=== PATIENT | female | born 1960 | race Caucasian/White ===

== ENCOUNTER → 2019-02-09 07:43 | Outpatient (CLI) | payer BC, SELFPAY ==
--- NOTE | 2019-02-09 08:47 | PM.TREADMILL ---
Cardiac Stress Test Report Referral & Results Date Patient Seen: 02/09/19 Time Patient Seen: 08:30 Requesting provider: Janna Patton Indication: Family H/o CAD Rest ECG: NSR Procedure Note: Today following both written and verbal informed consent, the patient was exercised according to a standard Malik protocol. The patient exercised for a total of 8 minutes 59 seconds achieving a maximum heart rate of 180. Patient's maximum systolic blood pressure was 190. This was an estimated 10.1 METs. Normal sinus rhythm throughout. No signs or symptoms of angina. Diffuse [address] deviations the resolved rapidly with rest.-10% JOSHUA on the active scale. Impression: Low probability for ischemia. Please note: Actual ECG tracings can be found in the PACS system.
== END ==
PROVIDERS: Visit Provider Student in an Organized Health Care Education/Training Program
DX: Z82.49 Family history of ischemic heart disease and other diseases of the circulatory system (principal); E78.5 Hyperlipidemia, unspecified; E03.9 Hypothyroidism, unspecified
CPT/HCPCS: 93016; 93017; 93018

== ENCOUNTER → 2025-01-10 11:50 | Outpatient (CLI) | payer MEDICARE, OTHER, SELFPAY ==
--- NOTE | 2025-01-10 11:55 | DI.RAD.S_ITS ---
PROCEDURE: XR DEXA AXIAL SKELETON INDICATIONS: OSTEOPOROSIS SCREENING COMPARISON: None. FINDINGS: Lumbar Spine: Bone mineral density 1.028 g/cm2, T score -0.2. Left Femoral Neck: Bone mineral density 0.751 g/cm2, T score -0.9. Left Hip: Bone mineral density 0.885 g/cm2, T score -0.5. Fracture Risk Calculation (when applicable): 10-year fracture risk of a major osteoporotic fracture 7.9 percent and of a hip fracture 0.5 percent. (T score greater or equal to -1.0 to: NORMAL) (T score from -1.1 to -2.4: OSTEOPENIA) (T score less than or equal to -2.5: OSTEOPOROSIS) IMPRESSION: Normal--- recommend repeat DEXA as clinically indicated. Follow-up guidelines as follows: Osteoporosis: Consider a repeat DEXA and Vertebral Fracture Assessment (VFA) exam in 2 years or sooner if medically necessary, to reassess this patient's status. Osteopenia: Consider a repeat DEXA in 2-3 years to reassess this patient's status, or if there is a new clinical indication. Normal: Consider a repeat DEXA in 5 years or sooner, or if there is a new clinical indication. All treatment decisions require clinical judgment and consideration of individual patient factors, including patient preferences, comorbidities, previous drug use, risk factors not captured in the FRAX model (e.g., frailty, falls, vitamin D deficiency, increased bone turnover, interval significant decline in bone density ) and possible under- or over-estimation of fracture risk by FRAX. In addition, the NOF Guide recommends that FDA-approved medical therapies be considered in postmenopausal women and men age >= 50 years with a: * Hip or vertebral (clinical or morphometric) fracture * T-score of <=-2.5 at the spine or hip * Ten-year fracture probability by FRAX of >= 3% for hip fracture or >=20% for major osteoporotic fracture. Dictated by: Leonard Mike M.D. on 01/10/2025 at 21:51 Approved by: Leonard Mike M.D. on 01/10/2025 at 21:53
== END ==
PROVIDERS: PCP Registered Nurse; Referring Provider Registered Nurse; Visit Provider Registered Nurse
DX: Z78.0 Asymptomatic menopausal state (principal); Z13.820 Encounter for screening for osteoporosis
CPT/HCPCS: 77080